=== PATIENT | female | born 1985 | race Caucasian/White ===

== ENCOUNTER 2017-11-16 16:35 | Inpatient (IN) | payer OTHER ==
[~2017-11-16 16:35] MED LIST: BUTORPHANOL 1 MG/ML INJ IV PRN; CARBOPROST TROME 250 MCG/ML IM PRN; DIPHENHYDRAMINE 25 MG TAB/CAP PO PRN; MAGNES/ALUMIN/SIMET 30ML UCUP PO PRN; MEPERIDINE HCL 25 MG/0.5 ML IV PRN; METHYLERGONOVINE 0.2MG/ML AMP IM PRN; PENICILLIN 5 MU in NA CHLORIDE 0.9% 100 ML IV PRN; PROMETHAZINE 25 MG/ML VIAL IM PRN; Ringers Lactate 1,000 ML IV PRN; ZOLPIDEM TARTRATE 5 MG TABLET PO PRN; miSOPROStol 100 MCG TAB PO PRN
[2017-11-16 16:50] LABS: RPR Titer ND
[2017-11-16 16:53] LABS: Absolute Lymphocytes (CBC) 1.4 K/uL (0.7-4.9); Absolute Monocytes 0.7 K/uL (0.1-1.3); Absolute Neutrophil 6.7 K/uL (1.8-8.0); Basophils % 0.4 % (0-1.3); Eosinophils % 0.4 % (0-4.4); Hematocrit 28.6 % (36.0-45.0); Lymphocytes % 15.7 % (15.3-44.8); MCH 24.3 pg (27.0-35.0); MCV 75.2 fL (80-100); MPV 8.8 fL (7.6-11.3); Monocytes % 7.7 % (3.3-12.3); RBC Red Blood Cell Count 3.81 M/uL (3.86-4.86)
[2017-11-16 17:00] LABS: Urine Appearance TURBID; Urine Bilirubin NEGATIVE (NEG); Urine Blood NEGATIVE (NEG); Urine Color DK YELLOW; Urine Glucose NEGATIVE (NEG); Urine Protein 1+ (NEG); Urine Specific Gravity >=1.030 (1.005-1.030)
[2017-11-16] MEDS ORDERED: OXYTOCIN/LR 20 UNIT/1,000 ML BAG IV SCH (17:00)
[2017-11-16] MEDS ORDERED: PENICILLIN G POT 5 MU/100 ML IVPB IV SCH (17:00)
[2017-11-16] MEDS ORDERED: Ringers Lactate 1,000 ML IV SCH (17:00)
[2017-11-16 17:07] LABS: Urine Microscopic Reflex ORDER UMIC
[2017-11-16 17:27] VITALS: BMI 37.3
[2017-11-16 19:11] LABS: Urine Bacteria <20 /HPF (<20); Urine Culture Reflex Order REFLEXED; Urine RBC <5 /HPF (NONE SEEN)
--- NOTE | 2017-11-16 20:56 | PREOPHP ---
Date of Admission: 11/16/2017 Rupali Small is a 31-year-old, 2, para 1, 39 weeks for Cytotec induction. The patient had Cytotec induction with her first as well. Full labor and delivery talk. Full Cytotec talk given. We will start with 25 mcg p.o. every 4 hours up to 6 total doses. If the patient gets into good labor, we will stop Cytotec and begin oxytocin. If spontaneous rupture occurs of membranes, we will also stop the Cytotec and go with oxytocin. The patient knows people respond differently to the medicines, some better than others. We will give her 10 mg of Ambien at 9 or 10 o'clock if she wish es it. Stadol and Phenergan has been ordered for discomfort. We will plan tomorrow morning if the c ervix is favorable to rupture membranes and begin the labor induction in earnest at that point. Rh p ositive. Immune to Rubella. Negative beta strep. NBC/MODL Voice ID: [id number]
[2017-11-16] MEDS ORDERED: PENICILLIN 2.5 MU in NA CHLORIDE 0.9% 100 ML IV SCH (21:00)
[2017-11-16 22:12] LABS: RPR (Rapid Plasma Reagin) NON-REACT (NON-REACT)
[2017-11-16] MEDS ORDERED: PENICILLIN G POT 5 MU/VIAL IV ONE (23:03)
[2017-11-16] MEDS ORDERED: NA CHLORIDE 0.9% 100 ML IV ONE (23:04)
[2017-11-17] MEDS ORDERED: PROMETHAZINE 25 MG/ML VIAL ONE (00:36)
[2017-11-17] MEDS ORDERED: PENICILLIN G POT 5 MU/VIAL IV ONE (01:20)
[2017-11-17] MEDS ORDERED: NA CHLORIDE 0.9% 200 ML IV ONE (01:20)
[2017-11-17] MEDS ORDERED: FENTANYL CITR 100 MCG/2 ML IV ONE (04:40)
[2017-11-17] MEDS ORDERED: BUPIVACAINE 0.25% PF 10 ML VIAL IV ONE (04:40)
[2017-11-17] MEDS ORDERED: ROPIVACAINE HCL 100 ML IV PRN (04:41)
[2017-11-17] MEDS ORDERED: METHYLERGONOVINE 0.2MG/ML AMP IM ONE ×2 (06:32→11:59)
[2017-11-17] MEDS ORDERED: CARBOPROST TROME 250 MCG/ML IM ONE ×2 (06:32→11:59)
--- NOTE | 2017-11-17 07:33 | PN ---
Rupali Small is hemanth regularly. She has her epidural now, is quite comfortable, and baby lo oks good. She is about 6 cm. Baby is still at -1 to 0 station. Anticipate more rapid progress from this point forward. EMMANUEL/ANASTACIO Voice ID: [id number] Report ID: [id number]
--- NOTE | 2017-11-17 10:40 | PN ---
The patient is very comfortable, still hemanth every 3 minutes or so. Cervix has not changed. B denia's station has not changed. We have another patient who is in labor with repeat section and I think, we have time to deliver the patient before we start any oxytocin on Rupali and then hopefully she will make more rapid progress. Full discussion with the patient. EMMANUEL/ANASTACIO Voice ID: [id number] Report ID: [id number]
[2017-11-17] MEDS ORDERED: LIDOCAINE 1% MPF 30 ML VIAL ONE (11:58)
--- NOTE | 2017-11-17 12:31 | PN ---
The patient is now on 4 milliunits of Pitocin, hemanth regularly. The baby has come down to abou t 0, almost +1 station. I think, it is occiput posterior, suggested she do pelvic rocks. Cervix on the right side is a little edematous. The baby's head though does not seem that large so hopefully w hen the baby rotates will get more rapid progress. Full discussion. EMMANUEL/ANASTACIO Voice ID: [id number] Report ID: [id number]
[2017-11-17] MEDS ORDERED: CEFAZOLIN/SWI 2gm 2 GM/20 ML SYR IV ONE (12:45)
[2017-11-17] MEDS ORDERED: OXYTOCIN 10 UNIT/ML ML IV ONE (13:00)
[2017-11-17] MEDS ORDERED: NA CIT/CITRIC AC 30 ML ORAL UDC ONE (13:05)
[2017-11-17] MEDS ORDERED: LIDOCAINE 1.5% W/EPI AMP 5 ML ONE (13:05)
[2017-11-17] MEDS ORDERED: METOCLOPRAMIDE 10 MG/2mL INJ ONE (13:05)
[2017-11-17] MEDS ORDERED: FAMOTIDINE 20 MG/2 ML VIAL IV ONE (13:06)
[2017-11-17] MEDS ORDERED: LIDOCAINE 2% W/EPI 1:200,000 MPF 20 ML VIAL IM ONE (13:10)
[2017-11-17] MEDS ORDERED: MIDAZOLAM HCL 2 MG/2 ML INJ ONE (13:46)
[2017-11-17] MEDS ORDERED: NS 0.9% VIAL 20 ML ONE (13:53)
[2017-11-17] MEDS ORDERED: Phenylephrine HCl 10 MG/ML 1 ML VIAL ONE (13:53)
[2017-11-17] MEDS ORDERED: MORPHINE SULFATE/PF 1 MG/ML (10 ML AMP) ONE (14:10)
[2017-11-17] MEDS ORDERED: ONDANSETRON 4 MG/2 ML VIAL IV PRN (14:20)
[2017-11-17] MEDS ORDERED: METHYLERGONOVINE 0.2 MG TAB PO PRN (14:20)
[2017-11-17] MEDS ORDERED: KETOROLAC 30 MG/ML INJ IM PRN (14:20)
[2017-11-17] MEDS ORDERED: Oxycodone HCl/Acetaminophen 1 TAB TAB PO PRN ×2 (14:20)
[2017-11-17] MEDS ORDERED: ONDANSETRON 4 MG (ODT) TAB PO PRN (14:20)
[2017-11-17] MEDS ORDERED: ACETAMINOPHEN 500 MG TAB PO PRN ×2 (14:20)
[2017-11-17] MEDS ORDERED: BISACODYL 10 MG RECTAL SUPP RECT PRN (14:20)
[2017-11-17] MEDS ORDERED: KETOROLAC 30 MG/ML INJ IV PRN (14:20)
[2017-11-17] MEDS ORDERED: DIPHENHYDRAMINE 25 MG TAB/CAP PO PRN (14:20)
[2017-11-17] MEDS ORDERED: D5LR 1,000 ML with OXYTOCIN 20 UNIT IV SCH ×2 (15:00)
[2017-11-17] MEDS ORDERED: OXYTOCIN/LR 20 UNIT/1,000 ML BAG IV SCH (15:00)
[2017-11-17] MEDS: METHYLERGONOVINE 0.2 MG TAB PO SCH ×2 (17:17→21:08)
--- NOTE | 2017-11-17 17:24 | OP ---
Surgeon: Dontrell Gusman MD Indications: A 31-year-old, 2, para 1, 39 weeks 1 day. Had Cytotec x3, then went into an ac tive labor. At approximately 5 cm, requested received epidural anesthesia. The patient progressed t o 8.5 cm, but then stopped for over 3 hours. The baby was thought to be brow presentation and at sherly e of delivery indeed was noted to be brow. After thorough discussion, we decided to proceed with joe arean section. Infection, blood loss, anesthetic complications, injury to bladder, bowel, ureter, po stoperative complications, clots in legs, and pneumonia discussed. The patient knows fully well this does not constitute all the possible problems that could occur during following surgery. Underwriting Support Manager Surgeon: Dr. Herndon. Anesthesia: Dr. Remy richardson for anesthesia, epidural. Description Of Procedure: After patient was prepped and draped and adequate anesthesia was establish ed, a Pfannenstiel incision was created and incision was carried transversely. Anterior fascial plan e was developed with both blunt and sharp dissection underlying rectus muscle was . Periton eum entered bluntly. Low transverse uterine incision created after bladder flap was developed. An 8 pound 5 ounce female delivered without difficulties Apgars 9 and 9. Cord blood specimen was obtaine d. The placenta was removed manually. Uterus cleared of clot and blood. Moderate hypotonus noted. Methergine 0.2 mg as well as IV drip Pitocin and massage. Estimated blood loss during procedure 120 0-1300 cc. Uterus was closed with a running-locked stitch of 1 chromic followed by numerous figure-o f-eight stitches along the suture line for complete hemostasis. After of bleeding was contained, the gutters were clear of clot and blood and the uterus was replaced in peritoneal cavity. Reinspection showed no further bleeding. The muscles were reapproximated with 0 Vicryl 3 interrupted sutures. T he fascia was closed with 1 Vicryl running from either angle to the midline. Subcutaneous tissue was closed with 2-0 plain. Absorbable suzanna placed and then metal suzanna. The patient had been give n 2 g of Ancef. Tolerated all procedures well. She was transferred back to her room in good conditi on. Final Diagnoses: Intrauterine gestation, 39 weeks 1 day, Cytotec for cervical ripening, labor induct ion, failure to progress in labor. Brow presentation. Primary section. Epidural anesthesi a. Moderate uterine hypotonus. NBC/MODL Voice ID: [id number] Report ID: [id number]
[2017-11-17] MEDS ORDERED: Ringers Lactate 2,000 ML IV ONE (19:07)
[2017-11-17] MEDS ORDERED: CEFAZOLIN 2 GM in NA CHLORIDE 0.9% 20 ML IVP ONE (21:00)
[2017-11-17] MEDS ORDERED: CEFAZOLIN/SWI 2gm 2 GM/20 ML SYR ONE (22:13)
[2017-11-18] MEDS: METHYLERGONOVINE 0.2 MG TAB PO SCH ×4 (01:53→16:39)
--- NOTE | 2017-11-18 08:44 | PN ---
The patient has 8.5 to 9 cm edema to cervical lip at around the 10 o'clock area, tried to reduce it b ut there is still all the way around. Baby may be occiput posterior, it is difficult to tell. Baby looked good on the monitor. She is having contractions regularly, every 2 minutes, very firm. She i s on 18 of Pitocin at this point. She has been doing pelvic rocking. The patient has been informed of course that if we do not see any progress during the next couple of hours, we may have to consider operative delivery, but we worry about shoulder dystocia with the slowing down of the progress at th is point, but right now, the patient wishes to wait another hour or so and I think that is a reasonab le thing. EMMANUEL/ANASTACIO Voice ID: [id number] Report ID: [id number]
--- NOTE | 2017-11-18 08:53 | PREOPHP ---
Date of Admission: 11/16/2017 The patient senses no change now in over 3 hours. In spite of good contractions, she is 8.5 cm. Nitin matous cervix. The baby in a posterior position. She is on 20 milliunits of Pitocin. Epidural is b ecoming less effective at this point. After consultation with the patient and , patient herse lf has requested section. Bleeding, infection, anesthetic complications, injury to bladder, bowel, ureter, postoperative complications, clots in legs, pneumonia discussed. The patient knows f ully well, this does not constitute all the possible problems that could occur during or following spencer rgery. We will call Dr. Alberto and let him top up the epidural and if that is effective we will use that, if not, spinal block or even general anesthetic. Full discussion. Preparations are being mad e at this point. Pitocin has been discontinued. We will proceed with expeditious section. EMMANUEL/ANASTACIO Voice ID: [id number]
[2017-11-18] MEDS: MAGNESIUM HYDROXIDE 8% 30 ML PO PRN ×2 (09:30→22:43)
[2017-11-18] MEDS: IBUPROFEN 200 MG TAB PO PRN ×2 (09:30→20:20)
--- NOTE | 2017-11-18 11:50 | PN ---
Postoperatively has done quite well. H and H with minimal change. Lochia is normal. The patient velasquez s no complaints or problems this morning. We will discontinue her IV this morning. Madrigal catheter a round lunchtime. Full postoperative talk given. She has not taken any pain medicines at this point. Full dismissal instructions given too, but we will go over those again tomorrow. No post epidural problems. She has had her Tdap immunization. Anticipate dismissal sometime tomorrow afternoon. EMMANUEL/ANASTACIO Voice ID: [id number] Report ID: [id number]
[2017-11-18] MEDS ORDERED: METHYLERGONOVINE 0.2 MG TAB PO ONE (16:35)
[2017-11-19] MEDS: IBUPROFEN 200 MG TAB PO PRN (07:09)
[2017-11-19 07:23] VITALS: BP 142/78; TEMP 99.9
--- NOTE | 2017-11-19 23:28 | DS ---
Hospital Course: A 31-year-old female, 2, para 1, 39 weeks and 1 day at time of delivery. C ytotec for cervical ripening. Labor induction. The patient dilated to 8.5 cm at which time experien elda secondary arrest of labor, failure to progress. Later was seen the baby had brow presentation at time of . Epidural anesthesia was used for delivery of an 8 pound 5 ounce female. Apgars 9 and 9. Moderate uterine hypotonus, 0.2 mg of Methergine IM as well as IV drip Pitocin and massage. Estimated blood loss 1200 cc. 2 g of Ancef pre and postop for prophylaxis. The patient is noted to be anemic on admission. H and H did not change that much pre and postop. Dismissed today to report back to my office next week for staple removal. To report any temperature elevation of 100 degrees or greater, severe pain, heavy bleeding, or any other type of abnormalities. No post epidural proble ms. Counseled about anemia and taking iron pills for the next 2 to 3 months. Dismissed with todd werner for analgesia although she may elect to take Motrin instead. Full discussion. Final Diagnoses: Term intrauterine 39 weeks 1 day at time of delivery, brow presentation, primary section, epidural anesthesia, moderate uterine hypotonus. EMMANUEL/ANASTACIO Voice ID: [id number] Report ID: [id number]
[2017-11-20 04:30] LABS: HBsAG Nonreactive (Nonreactive)
== END 2017-11-19 10:45 | disposition home or self-care (01) | DRG 766 ==
LOC: 2ND-WC 16:35 → EDSTATUS 21:02
PROVIDERS: ADMIT Specialist; ATTEND Specialist
PROC: 3E0P7VZ Introduction of Hormone into Female Reproductive, Via Natural or Artificial Opening (ICD-10-PCS; 2017-11-16)
PROC: 10D00Z1 Extraction of Products of Conception, Low, Open Approach (ICD-10-PCS; principal; 2017-11-17 13:15)
DX: O64.3XX0 Obstructed labor due to brow presentation, not applicable or unspecified (principal); O66.40 Failed trial of labor, unspecified; O62.2 Other uterine inertia; Z3A.39 39 weeks gestation of pregnancy; Z37.0 Single live birth
CPT/HCPCS: 36415; 81003; 81015; 85014; 85025; 86592; 86901; 87077; 87086; 87088; 87186; 87340; 88307; J0595; J0690; J2001; J2210; J2250; J2370; J2550; J2590; J2765; J2795; J3010

== ENCOUNTER 2022-02-12 08:10 | Emergency (ER) | payer OTHER, SELFPAY ==
[2022-02-12 08:55] LABS: Hematocrit 38.4 % (36.0-45.0); Lymphocytes % 14.2 % (15.3-44.8); MCV 84.9 fL (80-100); MPV 7.9 fL (7.6-11.3); RBC Red Blood Cell Count 4.53 M/uL (3.86-4.86)
[2022-02-12 09:14] LABS: Albumin 3.8 g/dL (3.4-5.0); Bilirubin Total 0.5 mg/dL (0.2-1.0); Potassium 3.8 mmol/L (3.5-5.1); Protein, Total 7.4 g/dL (6.4-8.2)
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
[2022-02-12 10:28] VITALS: BP 115/73; TEMP 98.4; O2SAT 96
== END 2022-02-12 10:05 | disposition home or self-care (01) ==
LOC: ER 08:10
DX: N93.9 Abnormal uterine and vaginal bleeding, unspecified (principal)
CPT/HCPCS: 36415; 80053; 84703; 85025; 99283